=== PATIENT | female | born 1960 | race Caucasian/White ===

== ENCOUNTER 2017-12-08 12:03 | Outpatient (CLI) | payer BC ==
[~2017-12-08] VITALS: Ht 157.5 cm; Wt 70.5 kg
--- NOTE | ~2017-12-08 | HEMODYNAMI ---
PATIENT:MITUL DE LEÓN MEDICAL RECORD: [id number] : 62 LOCATION:[facility] ADMISSION DATE: 12/08/17 Generatedon:12/08/201714:40 Patient name: MITUL DE LEÓN Patient #: [id number] SSN: : 1960 Date of study: 12/08/2017 Page: Of Hemodynamic Procedure Report Patient Data Patient Demographics Procedure consent was obtained First Name: MITUL Gender: Female Last Name: GENET : 1960 Patient #: [id number] Age: 57 year(s) Race: Unknown Additional ID: [id number] Contact details Address: [address] [place] [address] [email or web address] State: [place] City: [place] Zip code: [address] Admission Admission Data Admission Date: 12/08/2017 Admission Time: 12:03 Procedure Procedure Types Cath Procedure Diagnostic Procedure LHC LHC w/Coronaries Procedure Description Procedure Date Procedure Date: 12/08/2017 Procedure Start Time: 14:22 Procedure End Time: 14:36 Procedure Staff Name Function Lamont Sanchez MD Performing Physician Claudia Ramirez RT Monitor Giselle Jenkins RT Scrub Rosendo Kiran RN Nurse Procedure Data Cath Procedure Fluoroscopy Diagnostic fluoroscopy Total fluoroscopy Time: 1.5 time: 1.5 min min Diagnostic fluoroscopy Total fluoroscopy dose: 293 dose: 293 mGy mGy Contrast Material Contrast Material Type Amount (ml) Isovue 300 47 Entry Location Entry Primary Successful Side Size Upsize Upsize Entry Closure Succes sful Closure Location (Fr) 1 (Fr) 2 (Fr) Remarks Device Remarks Femoral Right 5 Fr Exoseal artery Estimated blood loss: 5 ml Procedure Complications No complications Procedure Medications Medication Administration Route Dosage Oxygen etCO2 Nasal cannula 2 l/min Heparin Flush Bag added to field 2 bags (1000units/500ml NS) 0.9% NaCl I.V. 100 ml/hr Radial Cocktail added to field 1 syringe (Verapomil 2mg/Nitro 400mcg/Heparin 1500units) Fentanyl I.V. 50 mcg Versed I.V. 1 mg Fentanyl I.V. 50 mcg Versed I.V. 1 mg Fentanyl I.V. 50 mcg Versed I.V. 1 mg Fentanyl I.V. 50 mcg Hemodynamics Rest Heart Rate: 91 (bpm) Pressure Samples Time Site Value (mmHg) Purpose Heart Use Rate(bpm) 14:32 LV 132/-1,20 Snapshot 74 14:33 AO 138/70(99) Pullback 84 14:33 LV 144/2,21 Pullback 84 Gradients Valve Time Site 1 Site 2 Mean SEP/DFP Peak To Heart Use (mmHg) (sec/min) Peak Rate (mmHg) (bpm) Aortic 14:33 LV AO 9 22 6 84 144/2,21 138/70(99) Calculations Valve P-P Mean Valve Index Valve Source Name Gradient Area Flow (cm2) Aortic 6 9 6 9 Snapshots Pre Cath Intra NCS Post Cath Vital Signs Time Heart Resp SPO2 etCO2 NIBP (mmHg) Rhythm Pain Sedation Rate (ipm) (%) (mmHg) Status Level (bpm) 14:09:19 75 18 99 0 137/75(114) NSR 0 (11) 10(A) , No pain 14:13:31 86 16 100 3 141/83(116) NSR 0 (11) 10(A) , No pain 14:17:47 69 16 98 6 131/71(94) NSR 0 (11) 10(A) , No pain 14:22:03 88 16 98 0 125/66(85) NSR 0 (11) 10(A) , No pain 14:26:19 60 17 99 6 98/60(69) NSR 0 (11) 9(A) , No pain 14:31:13 100 17 94 4.5 106/72(82) NSR 0 (11) 9(A) , No pain 14:35:18 91 16 97 2.2 124/63(95) NSR 0 (11) 9(A) , No pain Medications Time Medication Route Dose Verified Delivered Reason Notes Ef fectiveness by by 14:16:09 Oxygen etCO2 2 l/min Lamont Robbins Per Nasal Daniel Kiran RN physician cannula 14:16:16 Heparin Flush added 2 bags Lamont Robbins used for Bag to Daniel Kiran field technical specialist (1000units/500ml field NS) 14:16:24 0.9% NaCl I.V. 100 Lamont Rosendo Per ml/hr Daniel Kiran RN physician 14:16:32 Radial Cocktail added 1 Lamont Rosendo used for (Verapomil to syringe Daniel Kiran field technical specialist 2mg/Nitro field 400mcg/Heparin 1500units) 14:18:24 Fentanyl I.V. 50 mcg Lamont Rosendo for Daniel Kiran RN sedation 14:18:33 Versed I.V. 1 mg Lamont Rosendo for Daniel Kiran RN sedation 14:20:46 Fentanyl I.V. 50 mcg Lamont Rosendo for Daniel Kiran RN sedation 14:20:51 Versed I.V. 1 mg Lamont Rosendo for Daniel Kiran RN sedation 14:24:28 Fentanyl I.V. 50 mcg Lamont Rosendo for Daniel Kiran RN sedation 14:24:31 Versed I.V. 1 mg Lamont Rosendo for Daniel Kiran RN sedation 14:29:01 Fentanyl I.V. 50 mcg Lamont Rosendo for Daniel Kiran RN sedation Procedure Log Time Note 13:51:38 Rosendo Kiran RN sent for patient. Start room use. 14:01:39 Time tracking: Regular hours (M-F 7:00 - 5:00) 14:01:44 Plan of Care:Hemodynamics will remain stable., Cardiac rhythm will remain stable., Comfort level will be maintained., Respiratory function will remain adequate., Patient/ family verbilizes understanding of procedure., Procedure tolerated without complication., Recovers from procedure without complications.. 14:03:05 Patient received from Pre/Post Procedure Room to [facility] 2 Alert and oriented. Tansferred to table in Supine position. 14:03:06 Warm blankets applied, and bhargav hugger turned on for patient comfort. 14:03:06 Correct patient and procedure confirmed by team. 14:03:08 Signed procedure consent form obtained from patient. 14:03:09 ECG and BP/O2 sat monitors applied to patient. 14:08:12 Vital chart was started 14:11:06 Baseline sample Acquired. 14:11:20 Rhythm: sinus rhythm 14:11:22 Full Disclosure recording started 14:11:26 H&P Date Dictated: 12/08/2017 Within 30 days and on chart., H&P Addendum completed by physician on day of procedure. (MUST COMPLETE FOR ALL OUTPATIENTS). 14:11:27 Pre-procedure instructions explained to patient. 14:11:27 Pre-op teaching completed and patient verbalized understanding. 14:11:29 Family in waiting room. 14:11:31 Patient NPO since Midnight. 14:11:32 Is the patient allergic to Iodine/contrast media? No. 14:11:33 Was the patient premedicated? No 14:11:34 Is patient on blood thinner?No 14:11:36 Patient diabetic? No. 14:11:39 Previous problem with sedation/anesthesia? No ? 14:12:02 Snore? Yes 14:12:03 Sleep apnea? No 14:12:04 Deviated septum? No 14:12:05 Opens mouth fully? Yes 14:12:05 Sticks out tongue? Yes 14:12:10 Airway obstruction? Yes copd 14:12:13 Dentures? No ? 14:12:16 Pre procedure: right dorsailis pedis pulse 1+ Palpable, but thready & weak; easily obliterated 14:12:17 Pre procedure: left dorsailis pedis pulse 1+ Palpable, but thready & weak; easily obliterated 14:12:20 Patient pain scale 0/10 ?. 14:12:26 IV patent on arrival in left forearm with 0.9% NaCl at [facility]. 14:12:28 Lab results completed and on chart. 14:12:32 Right Radial & Right Groin area was prepped with chlora-prep and draped in sterile fashion 14:12:34 Alarms reviewed by R. N. 14:12:35 Sharps counted by scrub and verified by R.N. 14:14:53 Physician arrived 14:14:53 --------ALL STOP TIME OUT------ 14:14:54 Final Timeout: patient, procedure, and site verified with staff and physician. All members of the team are in agreement. 14:14:57 Right Radial & Right Groin site verified by team. 14:14:59 Physical assessment completed. ASA score P 2 - A patient with mild systemic disease as per Lamont Sanchez MD. 14:15:03 Sedation plan: IV Moderate Sedation Medication:Versed, Fentanyl 14:15:21 Use device set Radial Dx or PCI 14:15:22 ACIST Syringe (27369) opened to sterile field. 14:15:22 Medline Cath Pack ([id number]) opened to sterile field. 14:15:23 Bag Decanter (2002S) opened to sterile field. 14:15:23 DIAGNOSTIC WIRE .035 260cm J wire (223933) opened to sterile field. 14:15:24 ACIST Hand Control (97277) opened to sterile field. 14:15:24 ACIST Manifold (84845) opened to sterile field. 14:15:25 Tegaderm 4 x 4 (1626W) opened to sterile field. 14:16:09 Oxygen 2 l/min etCO2 Nasal cannula was administered by Rosendo Kiran RN; Per physician; 14:16:16 Heparin Flush Bag (1000units/500ml NS) 2 bags added to field was administered by Rosendo Kiran RN; used for procedure; 14:16:24 0.9% NaCl 100 ml/hr I.V. was administered by Rosendo Kiran RN; Per physician; 14:16:32 Radial Cocktail (Verapomil 2mg/Nitro 400mcg/Heparin 1500units) 1 syringe added to field was administered by Rosendo Kiran RN; used for procedure; 14:18:24 Fentanyl 50 mcg I.V. was administered by Rosendo Kiran RN; for sedation; 14:18:33 Versed 1 mg I.V. was administered by Rosendo Kiran RN; for sedation; 14:20:46 Fentanyl 50 mcg I.V. was administered by Rosendo Kiran RN; for sedation; 14:20:51 Versed 1 mg I.V. was administered by Rosendo Kiran RN; for sedation; 14:22:38 Procedure started. 14:22:44 Local anesthetic to right radial artery with Lidocaine 2% by Lamont Sanchez MD.INITIAL ACCESS ONLY 14:24:00 Local anesthetic to right femoral artery with Lidocaine 2% by Lamont Sanchez MD.ADDITIONAL ACCESS 14:24:22 SHEATH Prelude 5Fr 0.035 (NNX-3N-15-035) opened to sterile field. 14:24:28 Fentanyl 50 mcg I.V. was administered by Rosendo Kiran RN; for sedation; 14:24:31 Versed 1 mg I.V. was administered by Rosendo Kiran RN; for sedation; 14:24:54 DIAGNOSTIC Multipack 5Fr catheter set ([id number]) opened to sterile field. 14:26:35 A 5 Fr sheath was inserted into the Right Femoral artery 14:28:01 5 Fr jl 4 guide catheter was inserted over the wire 14:28:39 LCA angiography performed. 14:28:47 Injector settings: Ml/sec: 3, Volume: 6, 14:29:01 Fentanyl 50 mcg I.V. was administered by Rosendo Kiran RN; for sedation; 14:29:16 Injector settings: Ml/sec: 3, Volume: 6, 14:30:05 Catheter removed. 14:30:15 5 Fr 3drc guide catheter was inserted over the wire 14:31:17 RCA angiography performed. 14:31:21 Injector settings: Ml/sec: 3, Volume: 6, 14:31:23 Catheter removed. 14:31:38 5 Fr pigtail guide catheter was inserted over the wire 14:33:05 LV hemodynamics recorded. 14:33:06 LV gram done using CHOW 14:33:09 Injector settings: Ml/sec: 5, Volume: 15, 14:33:16 EF : 55 % 14:33:31 Catheter removed. 14:34:34 EXOSEAL 5Fr (EX500) opened to sterile field. 14:34:56 Sheath removed intact; hemostasis achieved with Exoseal to the Right Femoral artery. 14:34:58 Procedure ended.(Physican Out) 14:35:36 Fluoroscopy time 01.50 minutes. 14:35:46 Fluoroscopy dose: 293 mGy 14:35:46 Flurop Dose total: 293 14:35:49 Contrast amount:Isovue 300 47ml. 14:35:51 Sharps counted by scrub and verified by R.N. 14:35:53 Insertion/operative site no bleeding no hematoma. 14:35:56 Post-op/insertion site Right Femoral artery dressed using a 4 x 4 and Tegaderm. 14:35:58 Post right femoral artery:stable 14:36:01 Post Procedure Pulses reassessed and unchanged 14:36:05 Post procedure rhythm: unchanged. 14:36:07 Estimated blood loss: 5 ml 14:36:08 Post procedure instruction explained to patient.Patient verbalizes understanding. 14:36:09 Patient needs reinforcement of post procedure teaching. 14:36:18 Procedure and supply charges have been captured, reviewed, submitted and are correct. 14:36:23 Procedure Complication : No complications 14:36:26 Vital chart was stopped 14:36:26 See physician's report for complete and final results. 14:36:30 Report given to Pre/Post Procedure Room. 14:36:33 Patient transfered to Pre/Post Procedure Room with Stretcher. 14:36:36 Procedure ended. 14:36:36 Full Disclosure recording stopped 14:36:40 End room use (Document Last) Device Usage Item Name Manufacture Quantity Catalog Number Hospital Part Current M inimal Lot# / Charge Number Stock Stock Serial# Code ACIST Syringe Acist 1 35618 [id number] [id number] 2 0 (06683) [employer] Medline Cath Medline 1 [id number] 801781 84979 [id number] 5 Pack ([id number]) Bag Decanter Microtek 1 2001S 337798 94509 625075 5 (2001S) [employer] Inc. DIAGNOSTIC WIRE St Rj 1 142376 391270 155828 900610 3 0 .035 260cm J wire (231795) ACIST Hand Acist 1 58587 111975 804058 923629 5 Control (38525) [employer] ACIST Manifold Acist 1 96052 797687 269418 400705 5 (06220) [employer] Tegaderm 4 x 4 3M 1 1626W 344158 727425 562784 5 (1626W) SHEATH Prelude Merit 1 [id number]-38-035 200043 696932 861423 5 5Fr 0.035 Medical (GHQ-0D-12-035) DIAGNOSTIC Cardinal 1 [id number] 294574 50103 980785 3 0 Multipack 5Fr Health catheter set ([id number]) EXOSEAL 5Fr Cardinal 1 EX500 510945 537556 490926 1 0 (EX500) Health Signature Audit [place] Stage Time Signature Unsigned Intra-Procedure 12/08/2017 Claudia Ramirez 2:40:38 PM RT(R) Signatures Monitor : Claudia Ramirez RT Signature : Date : Time : [facility] [address] [place] [address]
[2017-12-08] MEDS ORDERED: XANAX0.5 MG PO (12:21)
[2017-12-08] MEDS ORDERED: TENORMIN25 MG PO (12:22)
[2017-12-08] MEDS ORDERED: ZETIA10 MG PO (12:22)
[2017-12-08] MEDS ORDERED: MENEST0.625 MG PO (12:23)
[2017-12-08 12:31] VITALS: BP 144/76; Ht 157.5 cm; Wt 70.5 kg
[2017-12-08 12:49] LABS: BASOPHILS 0.6 % (0-2); HEMATOCRIT 43.2 % (36.0-48.0); IMMATURE GRANULOCYTES 0.2 % (0-5); LYMPHOCYTES 36.2 % (15-50); MCH 32.1 pg (26.0-34.0); MCHC 34.7 g/dL (31.0-37.0); MCV 92.3 fL (80.0-100.0); MEAN PLATELET VOLUME 9.8 fL (7.4-10.4); MONOCYTES 8.5 % (2-11); NEUTROPHILS 50.5 % (40-80); PLATELET COUNT 201 10x3/uL (130-400); RBC 4.68 10x6/uL (4.00-5.40); RDW 12.1 % (11.5-14.5); WBC 5.2 10x3/uL (4.8-10.8)
[2017-12-08 12:58] LABS: CALC OSMOLALITY 282 mosm/kg (275-300); CHLORIDE - SERUM 105 mmol/L (98-107); CREATININE - SERUM 0.7 mg/dL (0.6-1.3); GLUCOSE 107 mg/dL (74-106); POTASSIUM - SERUM 4.4 mmol/L (3.5-5.1); SODIUM 143 mmol/L (136-145); UREA NITROGEN 8 mg/dL (7-18); eGFR NON AFRICAN AMERICAN > 90 mL/min (90-120)
== END 2017-12-08 16:50 ==
LOC: D.CATH 12:03
PROVIDERS: Internal Medicine Cardiovascular Disease
DX: I20.9 Angina pectoris, unspecified (principal); Z01.812 Encounter for preprocedural laboratory examination